=== PATIENT | male | born 1940 | race Caucasian/White ===

== ENCOUNTER 2017-11-15 07:40 | Outpatient (CLI) | payer MEDICARE, BC ==
[2017-11-15] VITALS (20 sets, daily range): BP systolic 108–147; BP diastolic 53–86
[~2017-11-15 07:40] MED LIST: CLOP75TA35 PO; LOSA25TA96 PO; SIMV20TA5 PO
== END 2017-11-15 23:59 | disposition home or self-care (01) ==
LOC: CARD DIAG 07:40
PROVIDERS: ATTEND Physician Assistant
DX: R55 Syncope and collapse (principal); J44.9 Chronic obstructive pulmonary disease, unspecified; F17.200 Nicotine dependence, unspecified, uncomplicated
CPT/HCPCS: 93660

== ENCOUNTER 2019-01-23 05:51 | Inpatient (IN) | payer MEDICARE, BC | END 2019-01-26 16:13 | disposition home or self-care (01) | LOC: ER 05:51 → ED HOLD 08:48 → PCU 3S 11:50 | DX: J44.1 Chronic obstructive pulmonary disease with (acute) exacerbation (principal); I50.31 Acute diastolic (congestive) heart failure; N17.9 Acute kidney failure, unspecified; Z95.0 Presence of cardiac pacemaker; I48.91 Unspecified atrial fibrillation; Z79.01 Long term (current) use of anticoagulants; R33.9 Retention of urine, unspecified ==

== ENCOUNTER 2019-04-04 12:32 | Outpatient (CLI) | payer MEDICARE, BC ==
[~2019-04-04 12:32] MED LIST changes: +BUDE10.22 INH; -CLOP75TA35 PO; +COU1T PO; +FURO-150 PO; +IPRA3AMP31; +LEVO50TA8 PO; -LOSA25TA96 PO; +METO25TA6 PO; +TAMS0.4C32 PO
[2019-04-04 13:21] LABS: TOTAL HEMOGLOBIN 13.6 G/dl (14.0-18.0)
[2019-04-04] MEDS ORDERED: albuterol 2.5 MG/3 ML nebule NEB ONE (13:30)
== END 2019-04-04 23:59 | disposition home or self-care (01) ==
LOC: RT 12:32
PROVIDERS: ATTEND Internal Medicine Pulmonary Disease
DX: J44.9 Chronic obstructive pulmonary disease, unspecified (principal); R94.2 Abnormal results of pulmonary function studies; I10 Essential (primary) hypertension; F17.290 Nicotine dependence, other tobacco product, uncomplicated
CPT/HCPCS: 85018; 94060; 94727; 94729; 94760

== ENCOUNTER 2019-07-10 06:29 | Emergency (ER) | payer MEDICARE, BC ==
[~2019-07-10] VITALS: Ht 175.3 cm; Wt 79.5 kg
[2019-07-10] MEDS ORDERED: ipratropium/albuterol 3ml nebule NEB ONE (06:35)
[2019-07-10] MEDS ORDERED: normal saline 1000ML IV soln IVB ONE (06:35)
[2019-07-10] MEDS ORDERED: LEVO50TA8 PO (07:14)
[2019-07-10] MEDS ORDERED: FLO0.4C PO (07:14)
[2019-07-10] MEDS ORDERED: METO-395 PO (07:14)
[2019-07-10] MEDS ORDERED: LOSA50TA3 PO (07:14)
[2019-07-10] MEDS ORDERED: FURO-150 PO (07:14)
[2019-07-10] MEDS ORDERED: WARF6TAB49 PO (07:14)
[2019-07-10] MEDS ORDERED: SIMV20TA5 PO (07:14)
[2019-07-10] MEDS ORDERED: IPRA3AMP31 IH (07:17)
[2019-07-10] MEDS ORDERED: BUDE10.22 INH (07:17)
[2019-07-10] MEDS ORDERED: WARF1TAB PO (07:20)
--- NOTE | 2019-07-10 07:36 | NUR ---
RT PAGE TWICE FOR TREATMENT.
[2019-07-10 07:44] LABS: BASOPHILS % (AUTO) 0.5 % (0-1); EOSINOPHILS # (AUTO) 0.1 X10'3 (0-0.9); EOSINOPHILS % (AUTO) 1.3 % (0-6); HEMATOCRIT 35.1 % (42.0-52.0); HEMOGLOBIN 11.8 g/dl (14.0-17.9); LYMPHOCYTES # (AUTO) 2.5 X10'3 (1.1-4.8); LYMPHOCYTES % (AUTO) 29.8 % (21-51); MEAN CORPUSCULAR HEMOGLOBIN 31.8 PG (27.0-31.0); MEAN CORPUSCULAR HGB CONC 33.7 g/dL (33.0-36.5); MEAN CORPUSCULAR VOLUME 94.2 FL (78-98); MEAN PLATELET VOLUME 10.9 FL (7.4-10.4); MONOCYTES # (AUTO) 0.7 X10'3 (0-0.9); NEUTROPHILS % (AUTO) 60.4 % (42-75); PLATELET COUNT 175 X10'3 (140-440); RED BLOOD COUNT 3.73 X10'6 (4.70-6.10); RED CELL DISTRIBUTION WIDTH 14.1 % (11.5-14.5); WHITE BLOOD COUNT 8.3 X10'3 (4.5-11.0)
[2019-07-10 07:55] LABS: ALANINE AMINOTRANSFERASE 19 U/L (12-78); ALBUMIN 3.1 G/DL (3.4-5.0); ALKALINE PHOSPHATASE 44 IU/L (46-116); ANION GAP 6 (8-16); ASPARTATE AMINO TRANSFERASE 13 U/L (10-37); BILIRUBIN,TOTAL 0.4 MG/DL (0.1-1.0); BLOOD UREA NITROGEN 18 MG/DL (7-18); BUN/CREATININE RATIO 9.7 (5.4-32.0); CALCIUM 8.5 MG/DL (8.5-10.1); CHLORIDE 104 MMOL/L (99-107); CREATININE 1.86 MG/DL (0.60-1.10); GLUCOSE 103 MG/DL (70-104); POTASSIUM 3.8 MMOL/L (3.5-5.1); SODIUM 139 MMOL/L (135-145); TOTAL CARBON DIOXIDE 29.4 MMOL/L (24-32); TOTAL PROTEIN 6.1 G/DL (6.4-8.2); eGFR 35 ML/MIN
[2019-07-10 08:01] LABS: MAGNESIUM 1.8 MG/DL (1.5-2.4)
--- NOTE | 2019-07-10 08:03 | NUR ---
RT PAGED AGAIN
--- NOTE | 2019-07-10 08:14 | NUR ---
RT AT BEDSIDE FOR BREATHING TREATMENT.
[2019-07-10 08:45] VITALS: BP 113/71
[2019-07-10] MEDS ORDERED: AZIT250T PO (08:46)
[2019-07-10] MEDS ORDERED: PRED20TA PO (08:46)
[2019-07-10] MEDS ORDERED: predniSONE 20 mg tablet PO ONE (08:50)
[2019-07-10 17:55] LABS: LARGE PLATELETS FEW; PLATELET ESTIMATE NORMAL
== END 2019-07-10 09:13 | disposition home or self-care (01) ==
LOC: ER 06:30
DX: R55 Syncope and collapse (principal); R42 Dizziness and giddiness; J44.1 Chronic obstructive pulmonary disease with (acute) exacerbation; I10 Essential (primary) hypertension; Z86.73 Personal history of transient ischemic attack (TIA), and cerebral infarction without residual deficits; Z88.8 Allergy status to other drugs, medicaments and biological substances; Z79.899 Other long term (current) drug therapy; Z79.01 Long term (current) use of anticoagulants; Z99.81 Dependence on supplemental oxygen
CPT/HCPCS: 36415; 71045; 80053; 83735; 83880; 84484; 85025; 85610; 93005; 94640; 94760; 99284; J7040; J7512

== ENCOUNTER 2020-04-29 09:09 | Day surgery (SDC) | payer MEDICARE, BC ==
[2020-04-24 12:52] LABS: BASOPHILS # (AUTO) 0.1 X10'3 (0-0.2); BASOPHILS % (AUTO) 0.4 % (0-1); EOSINOPHILS # (AUTO) 0.1 X10'3 (0-0.9); EOSINOPHILS % (AUTO) 0.5 % (0-6); LYMPHOCYTES # (AUTO) 3.4 X10'3 (1.1-4.8); LYMPHOCYTES % (AUTO) 22.7 % (21-51); MEAN CORPUSCULAR HEMOGLOBIN 31.9 PG (27.0-31.0); MEAN CORPUSCULAR HGB CONC 32.3 g/dL (33.0-36.5); MEAN CORPUSCULAR VOLUME 98.6 FL (78-98); MEAN PLATELET VOLUME 10.7 FL (7.4-10.4); MONOCYTES # (AUTO) 0.7 X10'3 (0-0.9); NEUTROPHILS # (AUTO) 10.8 X10'3 (1.8-7.7); NEUTROPHILS % (AUTO) 71.4 % (42-75); PRE OP HEMATOCRIT 41.4 % (42.0-52.0); PRE OP HEMOGLOBIN 13.4 g/dL (14.0-17.9); PRE OP PLATELET COUNT 197 X10'3 (140-440); RED CELL DISTRIBUTION WIDTH 14.5 % (11.5-14.5)
[2020-04-24 12:57] LABS: PRE OP PROTIME 24.7 SECONDS (9.0-12.0)
[2020-04-24 13:00] LABS: PRE OP INR 2.5 INR
[2020-04-24 13:08] LABS: ALBUMIN 3.5 G/DL (3.4-5.0); ALBUMIN/GLOBULIN RATIO 1.2 (1.1-1.5); ALKALINE PHOSPHATASE 49 IU/L (46-116); BLOOD UREA NITROGEN 23 MG/DL (7-18); BUN/CREATININE RATIO 13.9 (5.4-32.0); CALCIUM 8.6 MG/DL (8.5-10.1); CHLORIDE 103 MMOL/L (99-107); CREATININE 1.65 MG/DL (0.60-1.10); PRE OP ALT 28 U/L (30-65); PRE OP ANION GAP 10 (8-16); PRE OP AST 13 U/L (10-37); PRE OP BILIRUB, TOTAL 0.9 MG/DL (0.0-1.0); PRE OP GLUCOSE 99 MG/DL (70-104); PRE OP POTASSIUM 4.2 MMOL/L (3.4-5.1); PRE OP SODIUM 139 MMOL/L (135-145); TOTAL CARBON DIOXIDE 26.5 MMOL/L (24-32); TOTAL PROTEIN 6.4 G/DL (6.4-8.2); eGFR 41 ML/MIN
[2020-04-24 13:23] LABS: LARGE PLATELETS FEW; PLATELET ESTIMATE NORMAL
[~2020-04-29] VITALS: Ht 177.8 cm; Wt 85.7 kg
[2020-04-29] VITALS (26 sets, daily range): BP systolic 120–146; BP diastolic 73–97
[~2020-04-29 09:09] MED LIST changes: -BUDE10.22 INH; -COU1T PO; +DOCUMENT DATE & TIME OF BETA-BLOCKER PO ONE; +FLO0.4C PO; +FLUT100D2 INH; -IPRA3AMP31; +IPRA3AMP31 IH; +LOSA50TA3 PO; +SIMV-42 PO; -SIMV20TA5 PO; -TAMS0.4C32 PO; +WARF6TAB49 PO; +albuterol 2.5 MG/3 ML nebule NEB ONE; +ceFAZolin 2gm in dextrose, iso 50 ML IV ONE; +famotidine 20mg tablet PO ONE; +ringers solution, lacted 1,000 ML IV SCH
[2020-04-29] MEDS ORDERED: LIDOcaine 1% 30ml preserv. free vial ONE (10:41)
[2020-04-29] MEDS ORDERED: BUPIVAcaine/PF 2.5 mg/ml (0.25%) 30ml vial ONE (10:41)
[2020-04-29 10:55] LABS: PARTIAL THROMBOPLASTIN TIME 28 SECONDS (22-32)
[2020-04-29] MEDS ORDERED: midazolam 2 mg/2 ml injection ONE ×2 (11:01→11:57)
[2020-04-29] MEDS ORDERED: fentaNYL/PF 50MCG/1 ML 2ML syringe ONE ×2 (11:01→11:57)
[2020-04-29] MEDS ORDERED: 0.9 % SODIUM CHLORIDE 10 ML VIAL ONE (11:15)
[2020-04-29] MEDS ORDERED: propofol inj 20 ML IV ONE ×2 (11:15→12:05)
[2020-04-29] MEDS ORDERED: LIDOcaine 2% (20mg/ml) 5ml vial ONE ×2 (11:15→12:05)
[2020-04-29] MEDS ORDERED: dexamethasone sod phosphate 4mg/ml inj. ONE (11:16)
[2020-04-29] MEDS ORDERED: ondansetron/PF 4mg/2ml inj ONE (11:16)
[2020-04-29] MEDS ORDERED: ondansetron/PF 4mg/2ml inj IV PRN (11:25)
[2020-04-29] MEDS ORDERED: morphine 2 MG/ML inj. syringe IV PRN (11:25)
[2020-04-29] MEDS ORDERED: meperidine/PF 25mg/ml syringe IV PRN ×3 (11:25)
[2020-04-29] MEDS ORDERED: ringers solution, lacted 1,000 ML IV SCH (11:25)
[2020-04-29] MEDS ORDERED: morphine 4 MG/ML inj SYRINge IV PRN (11:25)
[2020-04-29] MEDS ORDERED: proCHLORperazine 10 MG/2 ml inj IV PRN (11:25)
[2020-04-29] MEDS ORDERED: desflurane 240ml liquid inh. IH ONE (11:50)
--- NOTE | 2020-04-29 12:48 | NUR ---
RECEIVED FROM OR VIA GURNEY ACCOMPANIED BY ANESTHESIOLOGIST, REPORT GIVEN. PT DROWSY BUT AWAKENS EASILY WITH NO COMPLAINT OF PAIN AT THIS TIME. DERMABOND AND STERI STRIP DRESSING TO UMBILICUS CDI, SKIN PINK AND WARM, ABD SOFT, THACKER. RO GAUGE PIV R WRIST PATENT AND RUNNING LR AT 100 ML/HR.
[2020-04-29] MEDS ORDERED: HYDROcodone/acetaminophen 5mg/325mg tablet PO PRN (13:05)
--- NOTE | 2020-04-29 16:48 | NUR ---
PT TOLERATING FLUIDS WELL, ABLE TO URINATE, VSS. SKIN PINK AND WARM, THACKER. DISCHARGE INSTRUCTIONS GIVEN AND PT VERBALIZED UNDERSTANDING. TRANSFERRED VIA WHEELCHAIR TO IN PRIVATE VEHICLE TO HOME.
== END 2020-04-29 16:48 | disposition home or self-care (01) ==
LOC: PAS 09:09
PROVIDERS: ATTEND Surgery
DX: K42.9 Umbilical hernia without obstruction or gangrene (principal); J44.9 Chronic obstructive pulmonary disease, unspecified; I11.0 Hypertensive heart disease with heart failure; I50.9 Heart failure, unspecified; I48.91 Unspecified atrial fibrillation; Z86.73 Personal history of transient ischemic attack (TIA), and cerebral infarction without residual deficits; Z79.899 Other long term (current) drug therapy; Z79.01 Long term (current) use of anticoagulants; Z87.891 Personal history of nicotine dependence; Z72.89 Other problems related to lifestyle; Z82.3 Family history of stroke; Z82.49 Family history of ischemic heart disease and other diseases of the circulatory system; Z11.59 Encounter for screening for other viral diseases
CPT/HCPCS: 36415; 49585; 71046; 80053; 82948; 85025; 85610; 85730; 93005; 94060; 94640; 94760; C1781; J1100; J2001; J2250; J2405; J2704; J3010; J3490; J7120; U0003; A4618; A7000

== ENCOUNTER 2021-05-11 19:33 | Emergency (ER) | payer MEDICARE, BC ==
[~2021-05-11] VITALS: Ht 175.3 cm; Wt 81.8 kg
[~2021-05-11 19:33] MED LIST changes: -DOCUMENT DATE & TIME OF BETA-BLOCKER PO ONE; +LOP25T PO; -METO25TA6 PO; -albuterol 2.5 MG/3 ML nebule NEB ONE; -ceFAZolin 2gm in dextrose, iso 50 ML IV ONE; -famotidine 20mg tablet PO ONE; -ringers solution, lacted 1,000 ML IV SCH
[2021-05-11 20:27] LABS: BASOPHILS # (AUTO) 0.1 X10'3 (0-0.2); BASOPHILS % (AUTO) 0.7 % (0-1); EOSINOPHILS # (AUTO) 0.1 X10'3 (0-0.9); HEMATOCRIT 40.3 % (42.0-52.0); HEMOGLOBIN 13.4 g/dl (14.0-17.9); LYMPHOCYTES # (AUTO) 2.4 X10'3 (1.1-4.8); LYMPHOCYTES % (AUTO) 23.7 % (21-51); MEAN CORPUSCULAR HEMOGLOBIN 32.7 PG (27.0-31.0); MEAN CORPUSCULAR HGB CONC 33.3 g/dL (33.0-36.5); MEAN CORPUSCULAR VOLUME 98.2 FL (78-98); MEAN PLATELET VOLUME 10.1 FL (7.4-10.4); MONOCYTES # (AUTO) 1.2 X10'3 (0-0.9); MONOCYTES % (AUTO) 11.3 % (2-12); NEUTROPHILS # (AUTO) 6.5 X10'3 (1.8-7.7); NEUTROPHILS % (AUTO) 63.3 % (42-75); PLATELET COUNT 156 X10'3 (140-440); RED CELL DISTRIBUTION WIDTH 14.2 % (11.5-14.5); WHITE BLOOD COUNT 10.2 X10'3 (4.5-11.0)
[2021-05-11 20:40] LABS: ALANINE AMINOTRANSFERASE 22 U/L (12-78); ALBUMIN 3.9 G/DL (3.4-5.0); ALBUMIN/GLOBULIN RATIO 1.1 (1.1-1.5); ALKALINE PHOSPHATASE 57 IU/L (46-116); ANION GAP 9 (8-16); ASPARTATE AMINO TRANSFERASE 13 U/L (10-37); BLOOD UREA NITROGEN 26 MG/DL (7-18); BUN/CREATININE RATIO 11.3 (5.4-32.0); CHLORIDE 97 MMOL/L (99-107); CREATININE 2.31 MG/DL (0.60-1.10); GLUCOSE 89 MG/DL (70-104); POTASSIUM 4.2 MMOL/L (3.5-5.1); SODIUM 138 MMOL/L (135-145); TOTAL CARBON DIOXIDE 32.4 MMOL/L (24-32); TOTAL PROTEIN 7.4 G/DL (6.4-8.2); eGFR 27 ML/MIN
[2021-05-11 20:46] LABS: TROPONIN I < 0.04 NG/ML (0.0-0.05)
[2021-05-11] MEDS ORDERED: ipratropium/albuterol 3ml nebule NEB ONE (23:20)
[2021-05-11] MEDS ORDERED: furosemide 40mg/4ml inj IV ONE (23:20)
--- NOTE | 2021-05-11 23:45 | NUR ---
[employer] rep. Called and faxed report. Lodging House Keeper explained Pt was on AFIB for 8hrs 40min today, at 134/min hr. Pt had a Rapid Ventricular Response for 2 min @ 18:48 with HR 185/min.
[2021-05-12 00:58] VITALS: BP 111/71
[2021-05-12] MEDS ORDERED: CYCL-1 PO (01:47)
[2021-05-12] MEDS ORDERED: cyclobenzaprine 10mg tablet PO ONE (01:50)
== END 2021-05-12 02:06 | disposition home or self-care (01) ==
LOC: ER 19:35
DX: R06.02 Shortness of breath (principal); I48.91 Unspecified atrial fibrillation; M62.838 Other muscle spasm; I10 Essential (primary) hypertension; Z95.0 Presence of cardiac pacemaker; Z95.5 Presence of coronary angioplasty implant and graft; Z85.118 Personal history of other malignant neoplasm of bronchus and lung; Z79.01 Long term (current) use of anticoagulants; Z79.899 Other long term (current) drug therapy; Z86.73 Personal history of transient ischemic attack (TIA), and cerebral infarction without residual deficits; Z87.891 Personal history of nicotine dependence; Z72.89 Other problems related to lifestyle
CPT/HCPCS: 36415; 71045; 80053; 83880; 84484; 85025; 93005; 94640; 96374; 99285; J1940; 94760

== ENCOUNTER 2021-12-02 06:47 | Inpatient (IN) | payer MEDICARE, BC ==
[~2021-12-02] VITALS: Ht 167.6 cm; Wt 88.6 kg
[~2021-12-02 06:47] MED LIST changes: -FLUT100D2 INH; -LOP25T PO; -LOSA50TA3 PO; +METO100T14 PO
[2021-12-02 07:26] LABS: ABG BASE EXCESS 0.6 mmol/L (-2.0-2.0); ABG HCO3 23.9 mmol/L (22.0-26.0); ABG OXYGEN SATURATION 92.6 % (94-97); ABG PO2 (T) 62.3 mmHg (75.0-100.0); ALLEN'S TEST POSITIVE; FCOHb 0.2 % (0.0-3.9); FLOW 3 L/min; FMetHb 0.1 % (0.0-1.5); FO2Hb 92.3 % (94-97); PATIENT TEMPERATURE 36.4; TOTAL HEMOGLOBIN 11.2 G/dl (14.0-18.0)
[2021-12-02 07:54] LABS: BASOPHILS % (AUTO) 0.5 % (0-1); EOSINOPHILS % (AUTO) 0.5 % (0-6); HEMATOCRIT 31.9 % (42.0-52.0); HEMOGLOBIN 10.7 g/dl (14.0-17.9); LYMPHOCYTES # (AUTO) 0.5 X10'3 (1.1-4.8); LYMPHOCYTES % (AUTO) 7.3 % (21-51); MEAN CORPUSCULAR HGB CONC 33.5 g/dL (33.0-36.5); MEAN CORPUSCULAR VOLUME 101.7 FL (78-98); MEAN PLATELET VOLUME 10.6 FL (7.4-10.4); MONOCYTES # (AUTO) 0.3 X10'3 (0-0.9); MONOCYTES % (AUTO) 4.7 % (2-12); NEUTROPHILS # (AUTO) 6.3 X10'3 (1.8-7.7); PLATELET COUNT 80 X10'3 (140-440); RED BLOOD COUNT 3.13 X10'6 (4.70-6.10); RED CELL DISTRIBUTION WIDTH 16.9 % (11.5-14.5); WHITE BLOOD COUNT 7.3 X10'3 (4.5-11.0)
[2021-12-02] MEDS ORDERED: acetaminophen 325mg tablet PO ONE (07:55)
[2021-12-02 08:05] LABS: APTT 29 SECONDS (22-32)
[2021-12-02] MEDS ORDERED: normal saline 1000ML IV soln IVB ONE ×2 (08:05→09:25)
[2021-12-02 08:09] LABS: ALANINE AMINOTRANSFERASE 62 U/L (12-78); ALBUMIN 2.8 G/DL (3.4-5.0); ALBUMIN/GLOBULIN RATIO 1.1 (1.1-1.5); ALKALINE PHOSPHATASE 45 IU/L (46-116); ANION GAP 10 (8-16); ASPARTATE AMINO TRANSFERASE 20 U/L (10-37); BILIRUBIN,TOTAL 0.7 MG/DL (0.1-1.0); BLOOD UREA NITROGEN 53 MG/DL (7-18); BUN/CREATININE RATIO 23.5 (5.4-32.0); CALCIUM 8.2 MG/DL (8.5-10.1); CHLORIDE 104 MMOL/L (99-107); CREATININE 2.26 MG/DL (0.60-1.10); GLUCOSE 110 MG/DL (70-104); POTASSIUM 3.7 MMOL/L (3.5-5.1); SODIUM 141 MMOL/L (135-145); TOTAL PROTEIN 5.3 G/DL (6.4-8.2); eGFR 28 ML/MIN
[2021-12-02 08:35] LABS: ANISOCYTOSIS 1+; PLATELET ESTIMATE DECREASED; POIKILOCYTOSIS 1+
[2021-12-02 08:36] LABS: ACANTHOCYTES FEW; ELLIPTOCYTES FEW
[2021-12-02 08:37] LABS: BURR CELLS FEW
[2021-12-02] MEDS ORDERED: azithromycin/NS 500mg/250ml 250 ML IV ONE (10:15)
[2021-12-02] MEDS ORDERED: cefepime 1GM/NS ADD-VANTAGE 100 ML IV ONE (10:15)
[2021-12-02] MEDS ORDERED: cefepime 1GM in D5W 50mL 50 ML IV ONE (10:25)
--- NOTE | 2021-12-02 10:41 | NUR ---
PT TO CT.
[2021-12-02] MEDS ORDERED: potassium CL 10mEq/100ml bag 100 ML IV PRN ×2 (12:35→14:45)
[2021-12-02] MEDS ORDERED: potassium Cl 20 mEq SR tablet PO PRN ×4 (12:35→14:45)
[2021-12-02] MEDS ORDERED: acetaminophen 650mg rectal suppository RC PRN (12:35)
[2021-12-02] MEDS ORDERED: magnesium Cl slow-release 64mg tablet PO PRN (12:35)
[2021-12-02] MEDS ORDERED: magnesium 4gm in 100ml NS 100 ML IV PRN (12:35)
[2021-12-02] MEDS ORDERED: acetaminophen 325mg tablet PO PRN ×3 (12:35→14:45)
[2021-12-02] MEDS ORDERED: magnesium hydroxide 30ml (MOM) UD suspension PO PRN ×2 (12:35→14:45)
[2021-12-02] MEDS ORDERED: normal saline 1000ml 1,000 ML IV SCH (12:35)
[2021-12-02] MEDS ORDERED: ondansetron 4mg rapidly disintigrating tab PO PRN (12:35)
[2021-12-02] MEDS ORDERED: magnesium 2GM in 50ml NS 50 ML IV PRN (12:35)
[2021-12-02] MEDS ORDERED: ondansetron/PF 4mg/2ml inj IV PRN ×2 (12:35→14:45)
[2021-12-02] MEDS ORDERED: bisacodyl 10mg suppository rectal RC PRN (12:35)
[2021-12-02] MEDS ORDERED: mag hydrox/Alum hydrox/simeth 30ml oral suspension PO PRN (12:35)
[2021-12-02] MEDS ORDERED: DILT-36 PO (12:45)
[2021-12-02] MEDS ORDERED: TIOT18CA3 INH (12:45)
[2021-12-02] MEDS ORDERED: FLUT1BLS10 INH (12:45)
[2021-12-02] MEDS ORDERED: FOLI0.8T3 PO (12:45)
[2021-12-02] MEDS ORDERED: PANT40TA54 PO (12:45)
[2021-12-02] MEDS ORDERED: FURO20TA4 PO (12:45)
[2021-12-02] MEDS: NORepinephrine 8mg/ 250ml NS 250 ML IV SCH ×2 (13:06→23:15)
[2021-12-02 13:08] LABS: MAGNESIUM 2.1 MG/DL (1.5-2.4); POTASSIUM 3.8 MMOL/L (3.5-5.1)
--- NOTE | 2021-12-02 13:11 | NUR ---
LUNCH TRAY REQUESTED TO BEDSIDE.
--- NOTE | 2021-12-02 13:11 | NUR ---
PT WITH VASOVAGAL EPISODE WHILE ATTEMPTING TO SIT UP TO USE URINAL. RN X3 AT BEDSIDE WELL MD AND BRAYDEN. PT NOTED TO URINATE HIMSELF. ALL LINENS CHANGED AND PT CLEANED. PT ALSO STARTED ON LEVOPHED DRIP DUE TO DOWN TRENDING BP.
[2021-12-02] MEDS ORDERED: LIDOcaine 2% 10ml TOPICAL JELLY (Urojet) TP ONE (14:45)
[2021-12-02] MEDS ORDERED: morphine 2 MG/ML inj. syringe IV PRN (14:45)
[2021-12-02] MEDS ORDERED: HYDROcodone/acetaminophen 5mg/325mg tablet PO PRN (14:45)
[2021-12-02] MEDS ORDERED: morphine 4 MG/ML inj SYRINge IV PRN (14:45)
[2021-12-02] MEDS ORDERED: potassium Cl 20mEq/100mL bag 100 ML IV PRN (14:45)
--- NOTE | 2021-12-02 14:48 | NUR ---
RESPIRATORY NOTIFIED THAT ORDER WAS PLACED FOR CONSULT.
[2021-12-02] MEDS: normal saline 1000ml 1,000 ML IV SCH (15:40)
[2021-12-02] MEDS ORDERED: cefepime 1GM/NS ADD-VANTAGE 100 ML IV SCH (16:00)
[2021-12-02] MEDS ORDERED: vancomycin/NS 1 GM ADD-VANTAGE 250 ML IV PRN (16:10)
[2021-12-02] MEDS: cefepime 1GM/NS ADD-VANTAGE 100 ML IV SCH (17:21)
--- NOTE | 2021-12-02 18:30 | NUR ---
pt levophed at 0.15mcg/kg/min at shift change.
[2021-12-02] MEDS: acetaminophen 325mg tablet PO PRN (19:12)
[2021-12-02] MEDS ORDERED: K and/or MAG REPLACEMENT MC SCH (20:00)
[2021-12-02] MEDS ORDERED: docusate sod 100mg capsule PO SCH (20:00)
[2021-12-02] MEDS ORDERED: vancomycin/NS 1 GM ADD-VANTAGE 250 ML IV SCH (20:00)
[2021-12-02] MEDS: ipratropium/albuterol 3ml nebule NEB PRN (20:40)
[2021-12-02] MEDS: budesonide 0.5mg/2ml UD nebule IH SCH (20:40)
[2021-12-02 21:00] VITALS: BP 122/59
[2021-12-02] MEDS ORDERED: temazepam 15mg capsule PO PRN (21:00)
[2021-12-02] MEDS ORDERED: warfarin 3mg tablet PO SCH (21:00)
--- NOTE | 2021-12-02 21:00 | NUR ---
Called Dr. Flores, pt had a scheduled Coumadin 6mg and Heparin 5,000 units. Pt's platelets were 80, INR of 2.3 and a PT:22.4. Dr Flores gave the okay to give meds. Will continue to monitor labs.
[2021-12-02] MEDS: docusate sod 100mg capsule PO SCH (21:27)
[2021-12-02] MEDS: atorvastatin 20mg tablet PO SCH (21:27)
[2021-12-02] MEDS: heparin, porcine 5000 units/ml vial SQ SCH (21:28)
[2021-12-02 22:00] VITALS: BP 105/64
[2021-12-02 23:00] VITALS: BP 121/59
[2021-12-03] VITALS (20 sets, daily range): BP systolic 105–139; BP diastolic 50–99
[2021-12-03] MEDS: HYDROcodone/acetaminophen 10/325mg tab PO PRN ×2 (00:40→07:42)
[2021-12-03] MEDS: cefepime 1GM/NS ADD-VANTAGE 100 ML IV SCH ×2 (00:50→07:45)
[2021-12-03 03:28] LABS: BASOPHILS % (AUTO) 0.5 % (0-1); EOSINOPHILS % (AUTO) 0.7 % (0-6); HEMATOCRIT 31.3 % (42.0-52.0); HEMOGLOBIN 10.6 g/dl (14.0-17.9); LYMPHOCYTES # (AUTO) 0.7 X10'3 (1.1-4.8); LYMPHOCYTES % (AUTO) 9.8 % (21-51); MEAN CORPUSCULAR HEMOGLOBIN 34.4 PG (27.0-31.0); MEAN CORPUSCULAR HGB CONC 33.7 g/dL (33.0-36.5); MEAN CORPUSCULAR VOLUME 101.9 FL (78-98); MEAN PLATELET VOLUME 11.5 FL (7.4-10.4); MONOCYTES # (AUTO) 0.5 X10'3 (0-0.9); MONOCYTES % (AUTO) 6.6 % (2-12); NEUTROPHILS # (AUTO) 5.8 X10'3 (1.8-7.7); NEUTROPHILS % (AUTO) 82.4 % (42-75); PLATELET COUNT 98 X10'3 (140-440); RED BLOOD COUNT 3.07 X10'6 (4.70-6.10); RED CELL DISTRIBUTION WIDTH 16.1 % (11.5-14.5); WHITE BLOOD COUNT 7.1 X10'3 (4.5-11.0)
[2021-12-03] MEDS: VANCOMYCIN LEVEL IV SCH (03:50)
[2021-12-03 04:00] LABS: ALANINE AMINOTRANSFERASE 80 U/L (12-78); ALBUMIN 2.7 G/DL (3.4-5.0); ALBUMIN/GLOBULIN RATIO 1.1 (1.1-1.5); ALKALINE PHOSPHATASE 49 IU/L (46-116); ANION GAP 8 (8-16); BILIRUBIN,TOTAL 0.8 MG/DL (0.1-1.0); BLOOD UREA NITROGEN 45 MG/DL (7-18); BUN/CREATININE RATIO 25.3 (5.4-32.0); CHLORIDE 105 MMOL/L (99-107); CREATININE 1.78 MG/DL (0.60-1.10); GLUCOSE 117 MG/DL (70-104); SODIUM 139 MMOL/L (135-145); TOTAL CARBON DIOXIDE 26.2 MMOL/L (24-32); TOTAL PROTEIN 5.2 G/DL (6.4-8.2); VANCOMYCIN,TROUGH 15.6 UG/ML (6.0-14.0); eGFR 37 ML/MIN
[2021-12-03 04:05] LABS: ASPARTATE AMINO TRANSFERASE 53 U/L (10-37); PHOSPHORUS 3.8 MG/DL (2.3-4.5); POTASSIUM 4.7 MMOL/L (3.5-5.1)
--- NOTE | 2021-12-03 06:21 | NUR ---
Problems reprioritized. Patient report given, questions answered & plan of care reviewed with CHANDLER Torrez.
[2021-12-03] MEDS: budesonide 0.5mg/2ml UD nebule IH SCH ×2 (07:22→22:00)
[2021-12-03] MEDS: ipratropium/albuterol 3ml nebule NEB PRN (07:22)
[2021-12-03] MEDS: K and/or MAG REPLACEMENT MC SCH (07:34)
[2021-12-03] MEDS: docusate sod 100mg capsule PO SCH ×2 (07:44→21:01)
[2021-12-03] MEDS: pantoprazole 40mg Tablet.DR PO SCH (07:44)
[2021-12-03] MEDS: tamsulosin 0.4mg capsule PO SCH (07:44)
[2021-12-03] MEDS: heparin, porcine 5000 units/ml vial SQ SCH (07:45)
[2021-12-03] MEDS: normal saline 1000ml 1,000 ML IV SCH ×2 (07:54→20:57)
[2021-12-03] MEDS ORDERED: azithromycin 250mg tablet PO SCH (08:00)
[2021-12-03] MEDS ORDERED: non-formulary drug (Tiotropium Bromide (Spiriva) 1 CAP) INH SCH (08:00)
[2021-12-03] MEDS ORDERED: cefepime 1GM in D5W 50mL 100 ML IV SCH (10:43)
--- NOTE | 2021-12-03 11:06 | NUR ---
Malnutrition Consult: Pt admit DX hypotension, PNA, and afib w/ hx COPD, CKD III, lung CA, afib, and hypothyroidism per EMR. Pt reports unsure of wt loss per RN Malnutrition Screen, reports good appetite per MD note, has no significant weakness, and scaled wt this admit +2.5kg compared to pt stated wt 1 month ago prior admit. Pt also appears WD/WN per ER note. Pt lacks minimum malnutrition criteria at this time. Will monitor for further malnutrition criteria and nutrition intervention needs this admit. Addendum: 12/03/21 at [address] Amended: Links added.
[2021-12-03 11:23] LABS: CLARITY,URINE CLOUDY (Clear); COLOR,URINE YELLOW (Yellow); GLUCOSE, URINE NEGATIVE (Neg); KETONES,URINE NEGATIVE (Neg); LEUKOCYTE ESTERASE ,URINE TRACE (Neg); NITRITES, URINE NEGATIVE (Neg); OCCULT BLOOD,URINE LARGE (Neg); PROTEIN,URINE 30 mg/dl (Neg); UROBILINOGEN,URINE 0.2 E.U/dL (0.2-1.0)
[2021-12-03 12:12] LABS: RBC,URINE TNTC /HPF (0-2); UA COLLECTION TYPE NON-SPECIFIED
[2021-12-03 12:13] LABS: BACTERIA,URINE FEW /HPF (Neg); SQUAMOUS EPITHELIAL CELL,UR FEW /LPF (FEW); WBC,URINE 0-4 /HPF (0-4)
[2021-12-03 14:36] LABS: UA EOSINOPHILS NO EOS /HPF
[2021-12-03] MEDS: cefepime 1GM in D5W 50mL 50 ML IV SCH (15:54)
[2021-12-03] MEDS: acetaminophen 325mg tablet PO PRN ×2 (15:55→21:03)
[2021-12-03] MEDS: lactobacillus rhamnosus 10,000 MMU CELLS/CAPSULE PO SCH (20:57)
--- NOTE | 2021-12-03 21:00 | NUR ---
pt is being transferred to Telemetry unit. Pt was supine in bed. HR: 97, SPO2: 90, BP: 116/64, RR:12. Patient report given, questions answered & plan of care reviewed with CHANDLER Dash.
[2021-12-03] MEDS: atorvastatin 20mg tablet PO SCH (21:05)
[2021-12-03] MEDS: ipratropium/albuterol 3ml nebule IH PRN (22:00)
[2021-12-04] VITALS (18 sets, daily range): BP systolic 91–149; BP diastolic 46–80
--- NOTE | 2021-12-04 02:58 | NUR ---
PAGED RT- PATIENT SAT'S AT 83%-MOVED HIM FROM 6 L NC TO 10, REPOSITIONED-JUST HAD 6 BEAT RUN VTACH, PLEASE EVAL AT BEDSIDE, ISMAEL DIGGS [id number]
[2021-12-04] MEDS: VANCOMYCIN LEVEL IV SCH (03:00)
[2021-12-04] MEDS: cefepime 1GM in D5W 50mL 50 ML IV SCH ×3 (03:09→16:49)
[2021-12-04] MEDS: acetaminophen 325mg tablet PO PRN (03:12)
[2021-12-04] MEDS ORDERED: diltiazem 5mg/ml 5ml inj. IV ONE (04:20)
--- NOTE | 2021-12-04 04:22 | NUR ---
PATIENTS HR SUSTAINING IN 120-130'S AFIB-6 BREAT RUN VTACH, ASYMPTOMATIC-MD ALVAREZ ORDERED IV CARDIZEM PUSH 10MG-IF HR REMAINS IN 120-130'S IN 30 MINUTES TO 60 MONUTES, PUSH15 MG CARDIZEM-IF HR STILL UNCHANGED, START CARDIZEM GTT AT 5 MCK/KG/MINUTE. LANA ARTEAGA Addendum: 12/04/21 at 0554 by Ekta Rasmussen RN HR LOW 100'S-HOLDING OFF ON 2ND CARDIZEM PUSH-WILL LET AM RN DETERMINE IF SECOND DOSE NEEDED OR DRIP. . NO PACER SPIKES SEEN THROUGHOUT SHIFT, MAY NEED INTERROGATION. PATIENT STED IT IS [facility], UNCLEAR ON INSERTION DATE AT THIS TIME. LANA
[2021-12-04 04:33] LABS: EOSINOPHILS % (AUTO) 0.6 % (0-6); HEMOGLOBIN 10.4 g/dl (14.0-17.9); MEAN CORPUSCULAR HEMOGLOBIN 33.7 PG (27.0-31.0); MEAN CORPUSCULAR HGB CONC 33.5 g/dL (33.0-36.5); MONOCYTES # (AUTO) 0.4 X10'3 (0-0.9)
[2021-12-04 04:36] LABS: BASOPHILS % (AUTO) 0.5 % (0-1); LYMPHOCYTES # (AUTO) 0.5 X10'3 (1.1-4.8); LYMPHOCYTES % (AUTO) 8.2 % (21-51); MEAN CORPUSCULAR VOLUME 100.7 FL (78-98); MEAN PLATELET VOLUME 10.5 FL (7.4-10.4); NEUTROPHILS # (AUTO) 4.6 X10'3 (1.8-7.7); NEUTROPHILS % (AUTO) 83.7 % (42-75); PLATELET COUNT 69 X10'3 (140-440); RED BLOOD COUNT 3.08 X10'6 (4.70-6.10); RED CELL DISTRIBUTION WIDTH 16.6 % (11.5-14.5); WHITE BLOOD COUNT 5.5 X10'3 (4.5-11.0)
[2021-12-04 04:51] LABS: ALANINE AMINOTRANSFERASE 68 U/L (12-78); ALBUMIN 2.7 G/DL (3.4-5.0); ALBUMIN/GLOBULIN RATIO 1.1 (1.1-1.5); ALKALINE PHOSPHATASE 52 IU/L (46-116); ANION GAP 8 (8-16); ASPARTATE AMINO TRANSFERASE 26 U/L (10-37); BILIRUBIN,TOTAL 1.3 MG/DL (0.1-1.0); BLOOD UREA NITROGEN 29 MG/DL (7-18); BUN/CREATININE RATIO 19.1 (5.4-32.0); CALCIUM 8.3 MG/DL (8.5-10.1); CHLORIDE 108 MMOL/L (99-107); CREATININE 1.52 MG/DL (0.60-1.10); GLUCOSE 95 MG/DL (70-104); MAGNESIUM 1.9 MG/DL (1.5-2.4); PHOSPHORUS 2.8 MG/DL (2.3-4.5); SODIUM 141 MMOL/L (135-145); TOTAL PROTEIN 5.2 G/DL (6.4-8.2); VANCOMYCIN,TROUGH 7.3 UG/ML (6.0-14.0); eGFR 44 ML/MIN
[2021-12-04] MEDS ORDERED: diltiazem-NS 100mg/100ml 100 ML IV SCH (06:30)
[2021-12-04] MEDS: normal saline 1000ml 1,000 ML IV SCH (06:45)
[2021-12-04] MEDS: diltiazem-NS 100mg/100ml 100 ML IV SCH ×2 (06:55→16:57)
--- NOTE | 2021-12-04 07:11 | NUR ---
Problems reprioritized. Patient report given, questions answered & plan of care reviewed with NORMA ARTEAGA.
--- NOTE | 2021-12-04 07:37 | NUR ---
PAGER ID: [phone] MESSAGE: [phone] Rex. increase O2 demand. look at cxr plz. [phone] montrell
[2021-12-04] MEDS: budesonide 0.5mg/2ml UD nebule IH SCH ×2 (07:52→20:49)
[2021-12-04] MEDS: K and/or MAG REPLACEMENT MC SCH (08:00)
[2021-12-04] MEDS: tamsulosin 0.4mg capsule PO SCH (08:32)
[2021-12-04] MEDS: lactobacillus rhamnosus 10,000 MMU CELLS/CAPSULE PO SCH ×2 (08:32→20:39)
[2021-12-04] MEDS: pantoprazole 40mg Tablet.DR PO SCH (08:32)
[2021-12-04] MEDS: docusate sod 100mg capsule PO SCH ×2 (08:34→20:39)
[2021-12-04] MEDS: HYDROcodone/acetaminophen 10/325mg tab PO PRN ×3 (08:34→20:40)
[2021-12-04] MEDS: vancomycin inj. 750 MG in normal saline 250ml IV soln 250 ML IV SCH (08:55)
[2021-12-04] MEDS ORDERED: furosemide 40mg/4ml inj IV ONE (09:55)
--- NOTE | 2021-12-04 18:13 | NUR ---
Patient in room MED 318. I have received report from NORMA ARTEAGA and had the opportunity to ask questions and assume patient care.
[2021-12-04] MEDS: atorvastatin 20mg tablet PO SCH (20:39)
[2021-12-04] MEDS: furosemide 40mg/4ml inj IV SCH (20:39)
--- NOTE | 2021-12-04 21:00 | NUR ---
NEW FINDING-JUGULAR EXTENSION RIGT LOWER NECK-CREPITIS NOTED. CALLING KIM SCHWARTZ Addendum: 12/04/21 at 2111 by Ekta Rasmussen RN KIM CAlled-no new orders except to monitor for s/s of worsening distention or patient reported pain. spenser ARTEAGA
--- NOTE | 2021-12-04 21:08 | NUR ---
NEW FINDING-JUGULAR EXTENSION RIGT LOWER NECK-CREPITIS NOTED. CALLING KIM SCHWARTZ
[2021-12-05] VITALS (10 sets, daily range): BP systolic 98–127; BP diastolic 50–67
[2021-12-05] MEDS: cefepime 1GM in D5W 50mL 50 ML IV SCH ×4 (00:08→23:57)
[2021-12-05] MEDS: HYDROcodone/acetaminophen 10/325mg tab PO PRN ×2 (00:12→20:24)
--- NOTE | 2021-12-05 04:57 | NUR ---
PATIENT HAD 11 BEAT RUN OF Dry Lube-PATIENT ASYMPTOMATIC, MD ALVAREZ CALLED; PATIENTS SATS DROPPED TO MID/UPPER 80'S-PAGED RT-PATIENT ON NONREBREATHER, COUGHED MORE PHLEM, MAY NEED INCREASED DOSE OF LASIX. WILL CALL KIM AGAIN TO SEE IF WE CAN GIVE MORE LASIX. LANA ARTEAGA Addendum: 12/05/21 at 0509 by Ekta Rasmussen RN LASIX BID, NONREBREATHER AND BREATHING AND SUCTIONING BROUGHT O2 SATS BACK UP-LASIX GIVEN BID, HOLDING OFF ON CALLING DR. ALVAREZ AT THIS TIME D/T RESOLUTION OF 02 SATURATION ISSUES AT PRESENT.
[2021-12-05] MEDS: ipratropium/albuterol 3ml nebule NEB PRN (05:02)
--- NOTE | 2021-12-05 05:05 | NUR ---
NONREBREATHER OFF NOW-SATS [id number] %-
--- NOTE | 2021-12-05 06:41 | NUR ---
Problems reprioritized. Patient report given, questions answered & plan of care reviewed with NORMA ARTEAGA.
[2021-12-05 07:21] LABS: ALANINE AMINOTRANSFERASE 49 U/L (12-78); ALBUMIN 2.6 G/DL (3.4-5.0); ALKALINE PHOSPHATASE 52 IU/L (46-116); ANION GAP 7 (8-16); ASPARTATE AMINO TRANSFERASE 22 U/L (10-37); BILIRUBIN,TOTAL 1.5 MG/DL (0.1-1.0); BLOOD UREA NITROGEN 21 MG/DL (7-18); BUN/CREATININE RATIO 14.1 (5.4-32.0); CALCIUM 8.4 MG/DL (8.5-10.1); CHLORIDE 105 MMOL/L (99-107); CREATININE 1.49 MG/DL (0.60-1.10); GLUCOSE 93 MG/DL (70-104); MAGNESIUM 1.8 MG/DL (1.5-2.4); PHOSPHORUS 2.3 MG/DL (2.3-4.5); POTASSIUM 3.6 MMOL/L (3.5-5.1); SODIUM 140 MMOL/L (135-145); TOTAL CARBON DIOXIDE 28.1 MMOL/L (24-32); TOTAL PROTEIN 5.3 G/DL (6.4-8.2); eGFR 45 ML/MIN
[2021-12-05] MEDS: K and/or MAG REPLACEMENT MC SCH (08:00)
[2021-12-05 08:07] LABS: BASOPHILS % (AUTO) 0.4 % (0-1); EOSINOPHILS # (AUTO) 0.1 X10'3 (0-0.9); EOSINOPHILS % (AUTO) 1.3 % (0-6); HEMATOCRIT 31.4 % (42.0-52.0); HEMOGLOBIN 10.6 g/dl (14.0-17.9); LYMPHOCYTES # (AUTO) 0.5 X10'3 (1.1-4.8); MEAN CORPUSCULAR HEMOGLOBIN 34.5 PG (27.0-31.0); MEAN CORPUSCULAR HGB CONC 33.9 g/dL (33.0-36.5); MEAN CORPUSCULAR VOLUME 101.8 FL (78-98); MEAN PLATELET VOLUME 10.4 FL (7.4-10.4); MONOCYTES # (AUTO) 0.4 X10'3 (0-0.9); MONOCYTES % (AUTO) 8.5 % (2-12); NEUTROPHILS # (AUTO) 4.2 X10'3 (1.8-7.7); NEUTROPHILS % (AUTO) 79.8 % (42-75); PLATELET COUNT 69 X10'3 (140-440); RED BLOOD COUNT 3.08 X10'6 (4.70-6.10); WHITE BLOOD COUNT 5.2 X10'3 (4.5-11.0)
[2021-12-05] MEDS: docusate sod 100mg capsule PO SCH ×2 (08:24→20:23)
[2021-12-05] MEDS: furosemide 40mg/4ml inj IV SCH ×2 (08:24→20:24)
[2021-12-05] MEDS: pantoprazole 40mg Tablet.DR PO SCH (08:24)
[2021-12-05] MEDS: budesonide 0.5mg/2ml UD nebule IH SCH ×2 (08:24→19:47)
[2021-12-05] MEDS: vancomycin inj. 750 MG in normal saline 250ml IV soln 250 ML IV SCH (08:24)
[2021-12-05] MEDS: lactobacillus rhamnosus 10,000 MMU CELLS/CAPSULE PO SCH ×2 (08:24→20:24)
[2021-12-05] MEDS: tamsulosin 0.4mg capsule PO SCH (08:24)
--- NOTE | 2021-12-05 08:57 | NUR ---
PAGER ID: [phone] MESSAGE: [phone]. Gerardo Goodman. Afib with RVR @ 2445 with HR 180's. Pt HR 120-160's now. Renetta [phone]
[2021-12-05 10:06] LABS: ABG BASE EXCESS 1.1 mmol/L (-2.0-2.0); ABG HCO3 23.5 mmol/L (22.0-26.0); ABG OXYGEN SATURATION 90.6 % (94-97); ABG PO2 (T) 53.7 mmHg (75.0-100.0); ALLEN'S TEST POSITIVE; FCOHb 0.3 % (0.0-3.9); FLOW 15 L/min; FMetHb 0.1 % (0.0-1.5); FO2Hb 90.2 % (94-97); TOTAL HEMOGLOBIN 10.8 G/dl (14.0-18.0)
[2021-12-05] MEDS: metoprolol succinate 25mg (24-HOUR) SR. Tablet PO SCH (10:50)
[2021-12-05] MEDS: HYDROcodone/acetaminophen 5mg/325mg tablet PO PRN (10:53)
[2021-12-05] MEDS: diltiazem-NS 100mg/100ml 100 ML IV SCH (13:19)
[2021-12-05 16:56] LABS: ABG BASE EXCESS 1.8 mmol/L (-2.0-2.0); ABG HCO3 24.4 mmol/L (22.0-26.0); ABG OXYGEN SATURATION 99.6 % (94-97); ABG PCO2 (T) 31.6 mmHg (35.0-48.0); ABG PO2 (T) 262.7 mmHg (75.0-100.0); ALLEN'S TEST POSITIVE; FCOHb 0.3 % (0.0-3.9); FMetHb 0.4 % (0.0-1.5); FO2Hb 98.9 % (94-97); TOTAL HEMOGLOBIN 11.1 G/dl (14.0-18.0)
[2021-12-05] MEDS: ipratropium/albuterol 3ml nebule IH PRN (17:07)
--- NOTE | 2021-12-05 18:26 | NUR ---
Patient in room MED 318. I have received report from NORMA ARTEAGA and had the opportunity to ask questions and assume patient care.
--- NOTE | 2021-12-05 18:57 | NUR ---
Problems reprioritized. Patient report given, questions answered & plan of care reviewed with CHANDLER Dash.
[2021-12-05] MEDS: atorvastatin 20mg tablet PO SCH (20:33)
[2021-12-05] MEDS ORDERED: warfarin 3mg tablet PO ONE (21:00)
[2021-12-06] MEDS: acetaminophen 325mg tablet PO PRN (00:17)
[2021-12-06] MEDS: HYDROcodone/acetaminophen 10/325mg tab PO PRN ×2 (04:10→10:42)
[2021-12-06 05:20] LABS: BASOPHILS % (AUTO) 0.8 % (0-1); EOSINOPHILS # (AUTO) 0.1 X10'3 (0-0.9); EOSINOPHILS % (AUTO) 1.8 % (0-6); HEMATOCRIT 29.6 % (42.0-52.0); HEMOGLOBIN 9.9 g/dl (14.0-17.9); LYMPHOCYTES # (AUTO) 0.5 X10'3 (1.1-4.8); LYMPHOCYTES % (AUTO) 9.9 % (21-51); MEAN CORPUSCULAR HEMOGLOBIN 33.7 PG (27.0-31.0); MEAN CORPUSCULAR HGB CONC 33.6 g/dL (33.0-36.5); MEAN CORPUSCULAR VOLUME 100.6 FL (78-98); MONOCYTES # (AUTO) 0.4 X10'3 (0-0.9); MONOCYTES % (AUTO) 8.9 % (2-12); NEUTROPHILS # (AUTO) 3.7 X10'3 (1.8-7.7); NEUTROPHILS % (AUTO) 78.6 % (42-75); PLATELET COUNT 64 X10'3 (140-440); RED BLOOD COUNT 2.94 X10'6 (4.70-6.10); RED CELL DISTRIBUTION WIDTH 16.2 % (11.5-14.5); WHITE BLOOD COUNT 4.8 X10'3 (4.5-11.0)
[2021-12-06 05:38] LABS: ALANINE AMINOTRANSFERASE 43 U/L (12-78); ALBUMIN 2.5 G/DL (3.4-5.0); ALBUMIN/GLOBULIN RATIO 0.9 (1.1-1.5); ALKALINE PHOSPHATASE 55 IU/L (46-116); ANION GAP 7 (8-16); ASPARTATE AMINO TRANSFERASE 17 U/L (10-37); BILIRUBIN,TOTAL 1.2 MG/DL (0.1-1.0); BLOOD UREA NITROGEN 24 MG/DL (7-18); BUN/CREATININE RATIO 15.6 (5.4-32.0); CALCIUM 8.4 MG/DL (8.5-10.1); CHLORIDE 99 MMOL/L (99-107); CREATININE 1.54 MG/DL (0.60-1.10); GLUCOSE 106 MG/DL (70-104); MAGNESIUM 1.7 MG/DL (1.5-2.4); PHOSPHORUS 2.6 MG/DL (2.3-4.5); POTASSIUM 3.6 MMOL/L (3.5-5.1); SODIUM 136 MMOL/L (135-145); TOTAL CARBON DIOXIDE 29.7 MMOL/L (24-32); TOTAL PROTEIN 5.3 G/DL (6.4-8.2); eGFR 44 ML/MIN
--- NOTE | 2021-12-06 06:41 | NUR ---
Problems reprioritized. Patient report given, questions answered & plan of care reviewed with DOMINGO ARTEAGA.
[2021-12-06] MEDS: budesonide 0.5mg/2ml UD nebule IH SCH ×2 (07:39→20:32)
[2021-12-06] MEDS: ipratropium/albuterol 3ml nebule IH PRN (07:39)
[2021-12-06] MEDS: vancomycin inj. 750 MG in normal saline 250ml IV soln 250 ML IV SCH (07:55)
[2021-12-06] MEDS: metoprolol succinate 25mg (24-HOUR) SR. Tablet PO SCH (07:56)
[2021-12-06] MEDS: pantoprazole 40mg Tablet.DR PO SCH (07:56)
[2021-12-06] MEDS: furosemide 40mg/4ml inj IV SCH ×2 (07:56→20:27)
[2021-12-06] MEDS: lactobacillus rhamnosus 10,000 MMU CELLS/CAPSULE PO SCH ×2 (07:56→20:26)
[2021-12-06] MEDS: docusate sod 100mg capsule PO SCH ×2 (07:56→20:26)
[2021-12-06] MEDS: tamsulosin 0.4mg capsule PO SCH (07:56)
[2021-12-06] MEDS: cefepime 1GM in D5W 50mL 50 ML IV SCH ×3 (07:57→23:39)
[2021-12-06 08:00] VITALS: BP 110/58
[2021-12-06 10:00] VITALS: BP 101/53
[2021-12-06] MEDS: diltiazem CD 120mg capsule (once-daily) PO SCH (12:44)
--- NOTE | 2021-12-06 13:27 | NUR ---
Initial: Pt admitted w/ acute exacerbation of diastolic CHF, acute respiratory failure and PNA per EMR. Pt currently on Regular diet w/ poor PO intake though now up to 100% since 12/05. Currently on 15L high flow oxygen per documentation. LBM 12/04 receiving routine colace. No nutrition intervention implemented at this time, will continue to monitor. Recs: 1. Continue Regular diet as tolerated 2. Bowel care per rx 3. Weekly wts Addendum: 12/06/21 at [address] Amended: Links added.
[2021-12-06 15:00] VITALS: BP 106/58
[2021-12-06 17:29] VITALS: BP 122/59
--- NOTE | 2021-12-06 17:39 | NUR ---
PHYSICAL THERAPY GOT PATIENT BACK INTO BED WITH 2 ASSISTS, PT TOLERATED SITTING UP FOR SEVERAL HOURS.
[2021-12-06 18:00] VITALS: BP 115/61
--- NOTE | 2021-12-06 18:21 | NUR ---
Problems reprioritized. Patient report given, questions answered & plan of care reviewed with Kofi ARTEAGA.
[2021-12-06] MEDS: atorvastatin 20mg tablet PO SCH (20:26)
[2021-12-06] MEDS: ipratropium/albuterol 3ml nebule NEB PRN (20:32)
[2021-12-06] MEDS ORDERED: warfarin 3mg tablet PO ONE (21:00)
[2021-12-06 22:00] VITALS: BP 102/56
[2021-12-07 02:00] VITALS: BP 118/62
[2021-12-07 06:00] VITALS: BP 109/61
[2021-12-07] MEDS ORDERED: VANCOMYCIN LEVEL IV ONE (06:30)
[2021-12-07 07:20] LABS: BASOPHILS % (AUTO) 0.4 % (0-1); EOSINOPHILS # (AUTO) 0.1 X10'3 (0-0.9); EOSINOPHILS % (AUTO) 1.7 % (0-6); HEMATOCRIT 27.9 % (42.0-52.0); HEMOGLOBIN 9.4 g/dl (14.0-17.9); LYMPHOCYTES # (AUTO) 0.4 X10'3 (1.1-4.8); LYMPHOCYTES % (AUTO) 8.2 % (21-51); MEAN CORPUSCULAR HEMOGLOBIN 33.8 PG (27.0-31.0); MEAN CORPUSCULAR HGB CONC 33.9 g/dL (33.0-36.5); MEAN CORPUSCULAR VOLUME 99.9 FL (78-98); MEAN PLATELET VOLUME 10.2 FL (7.4-10.4); MONOCYTES # (AUTO) 0.4 X10'3 (0-0.9); MONOCYTES % (AUTO) 8.8 % (2-12); NEUTROPHILS # (AUTO) 3.8 X10'3 (1.8-7.7); NEUTROPHILS % (AUTO) 80.9 % (42-75); PLATELET COUNT 75 X10'3 (140-440); RED BLOOD COUNT 2.79 X10'6 (4.70-6.10); RED CELL DISTRIBUTION WIDTH 15.7 % (11.5-14.5); WHITE BLOOD COUNT 4.7 X10'3 (4.5-11.0)
[2021-12-07 07:22] LABS: ALANINE AMINOTRANSFERASE 39 U/L (12-78); ALBUMIN 2.3 G/DL (3.4-5.0); ALBUMIN/GLOBULIN RATIO 0.8 (1.1-1.5); ALKALINE PHOSPHATASE 50 IU/L (46-116); ANION GAP 10 (8-16); ASPARTATE AMINO TRANSFERASE 19 U/L (10-37); BLOOD UREA NITROGEN 20 MG/DL (7-18); BUN/CREATININE RATIO 14.9 (5.4-32.0); CALCIUM 8.4 MG/DL (8.5-10.1); CHLORIDE 101 MMOL/L (99-107); CREATININE 1.34 MG/DL (0.60-1.10); GLUCOSE 105 MG/DL (70-104); PHOSPHORUS 2.7 MG/DL (2.3-4.5); POTASSIUM 3.4 MMOL/L (3.5-5.1); SODIUM 139 MMOL/L (135-145); TOTAL CARBON DIOXIDE 28.5 MMOL/L (24-32); TOTAL PROTEIN 5.3 G/DL (6.4-8.2); VANCOMYCIN,TROUGH 10.4 UG/ML (6.0-14.0); eGFR 51 ML/MIN
[2021-12-07] MEDS: ipratropium/albuterol 3ml nebule IH PRN (07:53)
[2021-12-07] MEDS: budesonide 0.5mg/2ml UD nebule IH SCH ×2 (07:53→21:18)
[2021-12-07] MEDS: furosemide 40mg/4ml inj IV SCH ×2 (08:14→20:38)
[2021-12-07] MEDS: lactobacillus rhamnosus 10,000 MMU CELLS/CAPSULE PO SCH ×2 (08:15→20:38)
[2021-12-07] MEDS: tamsulosin 0.4mg capsule PO SCH (08:15)
[2021-12-07] MEDS: metoprolol succinate 25mg (24-HOUR) SR. Tablet PO SCH (08:15)
[2021-12-07] MEDS: diltiazem CD 120mg capsule (once-daily) PO SCH (08:15)
[2021-12-07] MEDS: pantoprazole 40mg Tablet.DR PO SCH (08:15)
[2021-12-07] MEDS: docusate sod 100mg capsule PO SCH ×2 (08:15→20:38)
[2021-12-07] MEDS: cefepime 1GM in D5W 50mL 50 ML IV SCH ×3 (08:37→23:15)
[2021-12-07 10:00] VITALS: BP 116/75
[2021-12-07] MEDS ORDERED: LORazepam 2 mg/ml vial IV PRN (10:50)
[2021-12-07] MEDS: vancomycin inj. 750 MG in normal saline 250ml IV soln 250 ML IV SCH (11:11)
[2021-12-07 14:00] VITALS: BP 101/63
[2021-12-07 18:00] VITALS: BP 98/68
[2021-12-07] MEDS: atorvastatin 20mg tablet PO SCH (20:38)
[2021-12-07] MEDS ORDERED: warfarin 5mg tablet PO ONE (21:00)
[2021-12-07 22:00] VITALS: BP 113/62
[2021-12-08 02:00] VITALS: BP 99/56
[2021-12-08] MEDS: vancomycin/NS 1 GM ADD-VANTAGE 250 ML IV SCH (02:06)
[2021-12-08 06:00] VITALS: BP 104/50
[2021-12-08] MEDS: budesonide 0.5mg/2ml UD nebule IH SCH ×2 (08:00→20:05)
[2021-12-08] MEDS: tamsulosin 0.4mg capsule PO SCH (10:05)
[2021-12-08] MEDS: pantoprazole 40mg Tablet.DR PO SCH (10:05)
[2021-12-08] MEDS: lactobacillus rhamnosus 10,000 MMU CELLS/CAPSULE PO SCH ×2 (10:05→20:20)
[2021-12-08] MEDS: diltiazem CD 120mg capsule (once-daily) PO SCH (10:05)
[2021-12-08] MEDS: furosemide 40mg/4ml inj IV SCH ×2 (10:05→20:20)
[2021-12-08] MEDS: metoprolol succinate 25mg (24-HOUR) SR. Tablet PO SCH (10:06)
[2021-12-08] MEDS: docusate sod 100mg capsule PO SCH ×2 (10:06→20:20)
[2021-12-08] MEDS: cefepime 1GM in D5W 50mL 50 ML IV SCH ×2 (10:06→16:45)
[2021-12-08 11:00] VITALS: BP 131/70
[2021-12-08] MEDS: HYDROcodone/acetaminophen 5mg/325mg tablet PO PRN ×2 (11:18→20:24)
[2021-12-08 15:00] VITALS: BP 106/60
[2021-12-08 19:00] VITALS: BP 106/60
[2021-12-08] MEDS: atorvastatin 20mg tablet PO SCH (20:20)
[2021-12-08 23:00] VITALS: BP 104/62
[2021-12-09] MEDS: cefepime 1GM in D5W 50mL 50 ML IV SCH ×2 (00:37→08:28)
[2021-12-09] MEDS: HYDROcodone/acetaminophen 10/325mg tab PO PRN ×2 (01:54→06:02)
[2021-12-09] MEDS: vancomycin/NS 1 GM ADD-VANTAGE 250 ML IV SCH (02:30)
[2021-12-09 03:00] VITALS: BP 104/62
[2021-12-09 06:00] VITALS: BP 110/59
[2021-12-09 07:23] LABS: BASOPHILS % (AUTO) 0.4 % (0-1); EOSINOPHILS # (AUTO) 0.1 X10'3 (0-0.9); EOSINOPHILS % (AUTO) 2.7 % (0-6); HEMATOCRIT 29.9 % (42.0-52.0); HEMOGLOBIN 10.1 g/dl (14.0-17.9); LYMPHOCYTES # (AUTO) 0.4 X10'3 (1.1-4.8); LYMPHOCYTES % (AUTO) 9.8 % (21-51); MEAN CORPUSCULAR HEMOGLOBIN 33.9 PG (27.0-31.0); MEAN CORPUSCULAR HGB CONC 33.9 g/dL (33.0-36.5); MEAN PLATELET VOLUME 10.4 FL (7.4-10.4); MONOCYTES # (AUTO) 0.5 X10'3 (0-0.9); MONOCYTES % (AUTO) 11.7 % (2-12); NEUTROPHILS # (AUTO) 3.2 X10'3 (1.8-7.7); NEUTROPHILS % (AUTO) 75.4 % (42-75); PLATELET COUNT 100 X10'3 (140-440); RED BLOOD COUNT 2.99 X10'6 (4.70-6.10); RED CELL DISTRIBUTION WIDTH 15.6 % (11.5-14.5); WHITE BLOOD COUNT 4.2 X10'3 (4.5-11.0)
[2021-12-09 07:50] LABS: ALANINE AMINOTRANSFERASE 28 U/L (12-78); ALBUMIN 2.2 G/DL (3.4-5.0); ALBUMIN/GLOBULIN RATIO 0.7 (1.1-1.5); ALKALINE PHOSPHATASE 56 IU/L (46-116); ANION GAP 8 (8-16); ASPARTATE AMINO TRANSFERASE 26 U/L (10-37); BLOOD UREA NITROGEN 19 MG/DL (7-18); CALCIUM 8.4 MG/DL (8.5-10.1); CHLORIDE 101 MMOL/L (99-107); CREATININE 1.36 MG/DL (0.60-1.10); GLUCOSE 105 MG/DL (70-104); MAGNESIUM 1.7 MG/DL (1.5-2.4); SODIUM 140 MMOL/L (135-145); TOTAL CARBON DIOXIDE 31.4 MMOL/L (24-32); TOTAL PROTEIN 5.4 G/DL (6.4-8.2); eGFR 51 ML/MIN
[2021-12-09] MEDS: budesonide 0.5mg/2ml UD nebule IH SCH (08:00)
[2021-12-09] MEDS: metoprolol succinate 25mg (24-HOUR) SR. Tablet PO SCH (08:27)
[2021-12-09] MEDS: furosemide 40mg/4ml inj IV SCH (08:27)
[2021-12-09] MEDS: docusate sod 100mg capsule PO SCH (08:27)
[2021-12-09] MEDS: diltiazem CD 120mg capsule (once-daily) PO SCH (08:27)
[2021-12-09] MEDS: lactobacillus rhamnosus 10,000 MMU CELLS/CAPSULE PO SCH (08:27)
[2021-12-09] MEDS: tamsulosin 0.4mg capsule PO SCH (08:28)
[2021-12-09] MEDS: pantoprazole 40mg Tablet.DR PO SCH (08:37)
--- NOTE | 2021-12-09 10:07 | NUR ---
Message: [phone]. Gerardo Goodman. Pt coughing after eating. CXR? Renetta [phone] Transaction number: [id number]
[2021-12-09 11:00] VITALS: BP 113/55
--- NOTE | 2021-12-09 15:00 | NUR ---
Pt has been rounded on Q1H and repositioned Q2H and PRN
--- NOTE | 2021-12-09 15:04 | NUR ---
Report called to [facility] - spoke with Shiloh. Ok to leave f/c and x-PIV. D/C 18g in r AC - pt tolerated well. All personal belongings sent with patient. Pt sent to [facility] Via chandana and [facility] staff.
--- NOTE | 2021-12-09 15:06 | NUR ---
Got through to Lucretia Goodman - no option to leave message.
--- NOTE | 2021-12-09 15:06 | NUR ---
Tried calling Lucretia Goodman multiple times. Could not get through
[2021-12-11] MEDS ORDERED: VANCOMYCIN LEVEL IV ONE (01:30)
== END 2021-12-09 16:00 | DRG 193 ==
LOC: ER 06:48 → ED HOLD 12:44 → ICU 2S 18:57 → MED 3N 12-03 20:08
PROVIDERS: ADMIT Family Medicine; ATTEND Family Medicine
PROC: 05HY33Z Insertion of Infusion Device into Upper Vein, Percutaneous Approach (ICD-10-PCS; 2021-12-02)
PROC: 5A0935A Assistance with Respiratory Ventilation, Less than 24 Consecutive Hours, High Flow/Velocity Cannula (ICD-10-PCS; principal; 2021-12-04)
PROC: 5A0935A Assistance with Respiratory Ventilation, Less than 24 Consecutive Hours, High Flow/Velocity Cannula (ICD-10-PCS; 2021-12-05)
PROC: 5A09357 Assistance with Respiratory Ventilation, Less than 24 Consecutive Hours, Continuous Positive Airway Pressure (ICD-10-PCS; 2021-12-05)
PROC: 5A0935A Assistance with Respiratory Ventilation, Less than 24 Consecutive Hours, High Flow/Velocity Cannula (ICD-10-PCS; 2021-12-06)
PROC: 5A09357 Assistance with Respiratory Ventilation, Less than 24 Consecutive Hours, Continuous Positive Airway Pressure (ICD-10-PCS; 2021-12-06)
PROC: 5A0935A Assistance with Respiratory Ventilation, Less than 24 Consecutive Hours, High Flow/Velocity Cannula (ICD-10-PCS; 2021-12-07)
PROC: 5A09357 Assistance with Respiratory Ventilation, Less than 24 Consecutive Hours, Continuous Positive Airway Pressure (ICD-10-PCS; 2021-12-07)
PROC: 5A0935A Assistance with Respiratory Ventilation, Less than 24 Consecutive Hours, High Flow/Velocity Cannula (ICD-10-PCS; 2021-12-08)
PROC: 5A09357 Assistance with Respiratory Ventilation, Less than 24 Consecutive Hours, Continuous Positive Airway Pressure (ICD-10-PCS; 2021-12-09)
DX: J18.9 Pneumonia, unspecified organism (principal); I50.33 Acute on chronic diastolic (congestive) heart failure; J96.01 Acute respiratory failure with hypoxia; I13.0 Hypertensive heart and chronic kidney disease with heart failure and stage 1 through stage 4 chronic kidney disease, or unspecified chronic kidney disease; J44.0 Chronic obstructive pulmonary disease with (acute) lower respiratory infection; I48.0 Paroxysmal atrial fibrillation; I95.9 Hypotension, unspecified; R55 Syncope and collapse; N18.30 Chronic kidney disease, stage 3 unspecified; E03.9 Hypothyroidism, unspecified; I50.813 Acute on chronic right heart failure; E78.5 Hyperlipidemia, unspecified; I08.1 Rheumatic disorders of both mitral and tricuspid valves; Z20.822 Contact with and (suspected) exposure to COVID-19; Y95 Nosocomial condition; Z85.118 Personal history of other malignant neoplasm of bronchus and lung; Z79.899 Other long term (current) drug therapy; Z82.0 Family history of epilepsy and other diseases of the nervous system; Z95.0 Presence of cardiac pacemaker; Z86.73 Personal history of transient ischemic attack (TIA), and cerebral infarction without residual deficits; Z87.891 Personal history of nicotine dependence; Z79.01 Long term (current) use of anticoagulants
CPT/HCPCS: 36410; 36415; 36600; 71045; 71250; 80053; 80202; 81001; 82570; 82803; 82948; 83605; 83735; 83880; 84100; 84132; 84145; 84156; 84300; 84484; 85008; 85018; 85025; 85610; 85730; 87040; 87081; 87207; 87635; 92508; 92616; 93005; 94640; 94660; 94760; 96361; 96365; 96375; 97110; 97116; 97162; 97530; 99291; C1751; C9803; G0378; J0456; J0692; J1644; J1940; J2060; J3370; J3490; J7030; J7050